=== PATIENT | male | born 1985 | race Caucasian/White ===

== ENCOUNTER 2019-09-19 00:41 | Outpatient (CLI) | payer MEDICARE, SELFPAY ==
[2019-09-19 17:53] LABS: SARS-CoV-2 RNA PCR Negative
== END 2019-09-19 00:42 | disposition home or self-care (01) ==
LOC: ANHCOVIDDT 00:41
PROVIDERS: PCP Emergency Medicine; Visit Provider Surgery
DX: Z20.828 Contact with and (suspected) exposure to other viral communicable diseases (principal); Z01.812 Encounter for preprocedural laboratory examination
CPT/HCPCS: 87635; C9803; U0003

== ENCOUNTER 2019-09-22 02:31 | Day surgery (SDC) | payer MEDICARE, SELFPAY ==
[2019-09-10 14:09] VITALS: BMI 26.9
[2019-09-22] MEDS: LACTATED RINGERS 1,000 ML 30 ML IV CONT (11:25)
[2019-09-22 12:25] VITALS: BP 112/62; PULSE 62; TEMP 36.3; O2SAT 98
--- NOTE | 2019-09-22 12:46 | WPDANESEPPF ---
Anes - Initial Pre Proc Eval Procedure: Operation Date: 09/22/19 13:30 Proposed Procedures p Excision Mass Right Thigh, Excision Mass Left Thigh, Excision Two Masses Right Forearm, Excision Two Masses Right Lower Quadrant Abdominal Wall - Josiah Chaney DO Date/Time: 09/22/19 12:46 Surgeon: Josiah Chaney DO Pre Op Diagnosis: Thigh mass, Forearm mass, Right lower quad Abd Mas Patient Data Age: 34 Gender: M Height: 1.83 m Weight: 90 kg Last Vital Signs Temp 36.3 C L 09/22/19 12:25 Pulse 62 09/22/19 12:25 BP 112/62 09/22/19 12:25 Pulse Ox 98 09/22/19 12:25 Allergies Allergy/AdvReac Type Severity Reaction Status Date / Time No Known Allergies Allergy Unknown Verified 09/22/19 11:41 Home Medications Medication Instructions Recorded Confirmed Type No Home Medications 09/04/19 09/22/19 History Patient hx anesthesia problems: none Family hx anesthesia problems: none [facility] Social History Social History Smoking status: Never smoker Alcohol intake: never Substance use: never Additional occupation/education comments: Disabled Gender identity (if verbalized by the patient): Male Anes - Eval Final PreProcedure Day of Procedure 09/22/19 12:46 Patient weight: overweight Heart: regular rate and rhythm Lungs: clear to auscultation and normal air movement Airway: Mallampati scale class 1 Neurological: alert and oriented Last oral intake: >/= 8 hours ASA classification: II Emergent: no Anesthetic plan: proceed Anesthesia type and monitoring: general GIVS and standard monitoring Informed Consent: The patient's anesthetic plan and its attendant risks and benefits were discussed with the patient/family/POA. Questions were solicited and answers provided to the satisfaction of the patient/family/POA.
--- NOTE | 2019-09-22 12:56 | WPDHPUPDATE1 ---
History and Physical Update Update Date/Time: 09/22/19 12:56 History and Physical has been reviewed, including an updated exam of the patient. There are NO changes in the patient's condition. Risks, benefits, and alternatives have been discussed and questions answered. Patient agrees to proceed with procedure.
[2019-09-22] MEDS: ceFAZolin 2 GM/D5W 50 ML 2 GM/50 ML BAG IVPB (13:16)
[2019-09-22] MEDS: LIDO 1%/EPINEPHRINE 1:100,000 20 ML VIAL 40 ML INFILTRATE (13:30)
--- NOTE | 2019-09-22 14:00 | PM.PROC ---
Procedure Note - Detailed Date of procedure: 09/22/19 Pre-op diagnosis: Thigh mass, Forearm mass, Right lower quad Abd Mas Post-op diagnosis: same Procedure performed: 1. Excision of 2 cm and 1.5 cm right forearm mass 2. Excision of 2 cm and 1.5 cm right lower quadrant abdominal wall mass 3. Excision of 2 cm right anterior thigh mass 4. Excision of 2 cm left anterior thigh mass Description of procedure: Procedure as well as risks, benefits, and alternatives were discussed with the patient. Written consent was obtained and placed in chart prior to procedure. Patient was brought back to surgical suite. He was placed supine on operating table. Time-out was done to confirm patient and procedure. IV sedation was then administered by the Anesthesia Department. The surgical locations were prepped and draped in sterile fashion using chlorhexidine prep. 1% lidocaine with epinephrine was infiltrated over each of the premarked masses. A 1.5 cm incision was made over the right forearm mass using a 15 blade scalpel. The mass was carefully dissected free with blunt dissection and electrocautery. Hemostasis was achieved with electrocautery. The skin edges were then reapproximated using 4 O Monocryl subcuticular sutures. A 2 cm incision was made over the 2nd right forearm mass using a 15 blade scalpel. The mass was carefully dissected free with blunt dissection and electrocautery. Hemostasis was achieved with electrocautery. The skin edges were then reapproximated using 4 O Monocryl subcuticular sutures. A 1.5 cm incision was made over the right lower quadrant abdominal wall mass using a 15 blade scalpel. The mass was carefully dissected free with blunt dissection and electrocautery. Hemostasis was achieved with electrocautery. The skin edges were then reapproximated using 4 O Monocryl subcuticular sutures. A 2 cm incision was made over the 2nd right lower quadrant abdominal wall mass using a 15 blade scalpel. The mass was carefully dissected free with blunt dissection and electrocautery. Hemostasis was achieved with electrocautery. The skin edges were then reapproximated using 4 O Monocryl subcuticular sutures. A 2 cm incision was made over the right anterior thigh mass using a 15 blade scalpel. The mass was carefully dissected free with blunt dissection and electrocautery. Hemostasis was achieved with electrocautery. The skin edges were then reapproximated using 4 O Monocryl subcuticular sutures. A 2 cm incision was made over the left anterior thigh mass using a 15 blade scalpel. The mass was carefully dissected free with blunt dissection and electrocautery. Hemostasis was achieved with electrocautery. The skin edges were then reapproximated using 4 O Monocryl subcuticular sutures. Exofin glue was applied over each incision. The patient was awakened from anesthesia and transferred to recovery. Anesthesia: MAC and local (1% lidocaine with epinephrine) Surgeon: Josiah Chaney DO Wrapper Leaf Inspector: Cris Haq NP Estimated blood loss (mL): 5 Pathology: yes Complications: No immediate complications Condition: stable Disposition: same day Findings: This is a 34-year-old man who presented with multiple painful lumps on his right arm, right lower abdomen, and each thigh. These masses had been present for several months, and have gotten slightly larger. He has never had any of these masses removed and sent for pathology in the past. He is concerned about cancer and would like to know his risks. Discussions were made with the patient about treatment options, and decision was made to proceed with excision of right forearm mass x2, right lower quadrant abdominal wall mass x2, right anterior thigh mass, and left anterior thigh mass. All of the above mentioned masses were excised. The patient was marked in preop and each mass was confirmed with the patient prior to proceeding with the procedure under sedation. He had 2 masses on his right forearm. The more proxi
[2019-09-22 14:03] VITALS: BP 96/49; PULSE 64; RESP 18; O2SAT 94
[2019-09-22 14:30] VITALS: BP 116/62; PULSE 66; RESP 18; O2SAT 100
[2019-09-22 14:45] VITALS: BP 124/75; PULSE 72; RESP 18
== END 2019-09-22 15:00 | disposition home or self-care (01) ==
PROVIDERS: PCP Emergency Medicine; Visit Provider Surgery
PROC: (CPT 27327; principal; 2019-09-22 13:30)
DX: D17.24 Benign lipomatous neoplasm of skin and subcutaneous tissue of left leg (principal); D17.23 Benign lipomatous neoplasm of skin and subcutaneous tissue of right leg; D17.21 Benign lipomatous neoplasm of skin and subcutaneous tissue of right arm; D17.1 Benign lipomatous neoplasm of skin and subcutaneous tissue of trunk
CPT/HCPCS: 27327; 25071; 22903; 88304; J0690; J2250; J2704; J3010; J7120

== ENCOUNTER 2020-03-11 15:05 | Outpatient (CLI) | payer MEDICARE, MEDICAID, SELFPAY ==
--- NOTE | ~2020-03-11 | XR_ITS ---
EXAMINATION: XR lumbar spine 2-3V DATE: 03/11/2020 16:26 INDICATION: Chronic low back pain. TECHNIQUE: 3 views of lumbar spine were obtained. COMPARISON: Lumbar spine radiograph 09/03/2017 FINDINGS: There is 3 degrees levocurvature of lumbar spine. Vertebral body heights are normal. Interv ertebral disc heights are normal. The facet joints are unremarkable. IMPRESSION: 1. No etiology for the patient's symptoms. Reviewed, dictated and finalized at location B. RECEIVER
--- NOTE | ~2020-03-11 | XR_ITS ---
XR thoracic spine 3V DATE: 03/11/2020 16:26 INDICATION: Chronic back pain. No injury. TECHNIQUE: AP, lateral, swimmer views COMPARISON: 09/03/2017 thoracic spine FINDINGS: No fracture or dislocation or bone destruction. The thoracic pedicles are intact. No parasp inal soft tissue thickening. IMPRESSION: Negative Reviewed, dictated and finalized at location A. ODITIES TRADER IMPRESSION: Negative
--- NOTE | ~2020-03-11 | XR_ITS ---
XR cervical spine 4-5V DATE: 03/11/2020 16:26 INDICATION: Chronic neck pain. No injury. TECHNIQUE: AP, open-mouth, lateral, swimmer views COMPARISON: 09/03/2017 cervical spine FINDINGS: There is straightening of the cervical spine. C1 and C2 are normally aligned and the odonto id process is intact. No fracture or dislocation or locked facet or prevertebral soft tissue swelling . Cervical interspaces are well preserved. IMPRESSION: Straightening of the cervical spine Reviewed, dictated and finalized at location A. UNICATIONS PLANNER
[2020-03-11 15:43] LABS: Hematocrit 39.1 % (42.0-52.0); Hemoglobin 14.4 g/dL (14.0-18.0); Mean Corpuscular HGB Conc 36.8 g/dl (32-36); Mean Corpuscular Hemoglobin 32.7 pg (26-34); Mean Corpuscular Volume 88.9 fl (80-100); Mean Platelet Volume 9.8 fl (7.4-10.4); Platelet Count Result 248 k/mm3 (150-375); Red Cell Distribution Width 11.7 % (11.5-14.5); White Blood Count 7.5 K/mm3 (4.5-10.0)
[2020-03-11 15:45] LABS: Add Urine Microscopic? NO; Appearance Urine Clear (Clear); Bilirubin Urine Negative (Negative); Blood Urine Negative (Negative); Color Urine Yellow (Yellow); Glucose Urine UA Negative (Negative); Ketones Urine Negative (Negative); Leukocyte Esterase Ur Negative LEU/UL (NEGATIVE); Nitrate Urine Negative (Negative); Protein Urine Negative (Negative); Specific Grav Ur 1.017 (1.001-1.035); Urobilinogen Urine Negative mg/dL (<2.0)
[2020-03-11 15:55] LABS: Alanine Aminotransferase 15 U/L (4-50); Albumin Level 4.3 g/dL (3.5-5.1); Alkaline Phosphatase 54 U/L (38-126); Anion Gap 6 mmol/L (8-16); Aspartate Amino Transferase 29 U/L (17-59); Bilirubin,Total 0.5 mg/dL (0.2-1.3); Blood Urea Nitrogen 20 mg/dL (9-20); Calcium 9.2 mg/dL (8.4-10.2); Carbon Dioxide 29 mmol/L (22-30); Chloride 104 mmol/L (98-107); Cholesterol 179 mg/dL (0-200); Estimated Glomerular Filt Rate 58; Glucose 92 mg/dL (75-110); HDL Direct 25 mg/dL; Potassium 4.4 mmol/L (3.4-5.0); Sodium 139 mmol/L (137-145); Triglycerides 141 mg/dL (<150)
[2020-03-11 16:06] LABS: LDL Cholesterol Direct 135 mg/dL
[2020-03-11 16:23] LABS: Hemoglobin A1C 4.7 % (<5.7)
[2020-03-11 16:26] LABS: Thyroid Stimulating Hormone 0.637 uIU/mL (0.465-4.680)
[2020-03-11 16:45] LABS: Creatinine Urine 104.9 mg/dL
[2020-03-11 16:46] LABS: Free T4 Free Thyroxine 0.92 ng/mL (0.78-2.19)
[2020-03-11 16:48] LABS: MALB Creatinine Ratio < 5.7 mg/g (0-30); Microalbumin Urine Random < 6.0 mg/L (0-16.7)
== END 2020-03-11 15:06 | disposition home or self-care (01) ==
PROVIDERS: PCP Emergency Medicine; Visit Provider Emergency Medicine
DX: M54.5 Low back pain (principal); R73.9 Hyperglycemia, unspecified; F41.9 Anxiety disorder, unspecified; F32.9 Major depressive disorder, single episode, unspecified; I10 Essential (primary) hypertension; E78.5 Hyperlipidemia, unspecified; R51.9 Headache, unspecified
CPT/HCPCS: 36415; 72050; 72072; 72100; 80053; 80061; 81003; 82043; 83036; 84439; 84443; 85027

== ENCOUNTER 2023-06-25 08:35 | Emergency (ER) | payer MEDICARE, MEDICAID, SELFPAY ==
[2023-06-25 08:46] VITALS: BP 140/90; PULSE 80; RESP 16; TEMP 36.8; O2SAT 100
[2023-06-25 09:03] LABS: Basophils Percent Auto 0.6 % (0.2-1.2); Eosinophils Absolute Auto 0.1 K/mm3 (0-0.3); Eosinophils Percent Auto 1.3 % (0-4.4); Hemoglobin 16.1 g/dL (14.0-18.0); Immature Granulocyte Absolute 0.02 K/mm3 (0.00-0.031); Immature Granulocyte Percent A 0.3 % (0-0.5); Lymphocytes Absolute Auto 1.25 K/mm3 (0.9-3.2); Lymphocytes Percent Auto 18.3 % (18.3-44.2); Mean Corpuscular HGB Conc 35.8 g/dl (32-36); Mean Corpuscular Volume 89.5 fl (80-100); Mean Platelet Volume 9.7 fl (7.4-10.4); Monocytes Absolute Auto 0.3 K/mm3 (0.1-0.6); Neutrophils Absolute Auto 5.1 K/mm3 (1.3-6.7); Neutrophils Percent Auto 74.5 % (45.5-73.1); Platelet Count Result 265 k/mm3 (150-375); Red Blood Count 5.03 M/mm3 (4.6-6.20); Red Cell Distribution Width 11.9 % (11.5-14.5); White Blood Count 6.8 K/mm3 (4.5-10.0)
[2023-06-25 09:08] LABS: Add Urine Microscopic? NO; Color Urine Yellow (Yellow)
[2023-06-25 09:09] LABS: Appearance Urine Clear (Clear); Bilirubin Urine Negative (Negative); Blood Urine Negative (Negative); Glucose Urine UA Negative (Negative); Ketones Urine Trace mg/dL (Negative); Leukocyte Esterase Ur Negative LEU/UL (Negative); Nitrate Urine Negative (Negative); Protein Urine Negative (Negative); Specific Grav Ur 1.015 (1.001-1.035); Urobilinogen Urine 0.2 mg/dL (<2.0)
[2023-06-25 09:12] LABS: Alanine Aminotransferase 44 U/L (6-50); Albumin Level 4.9 g/dL (3.5-5.1); Alkaline Phosphatase 70 U/L (38-126); Anion Gap 6 mmol/L (8-16); Aspartate Amino Transferase 39 U/L (17-59); Bilirubin,Total 0.7 mg/dL (0.2-1.3); Blood Urea Nitrogen 14 mg/dL (9-20); Calcium 9.6 mg/dL (8.4-10.2); Carbon Dioxide 26 mmol/L (22-30); Chloride 105 mmol/L (98-107); Estimated CRCL calculation 113 ml/min; Estimated Glomerular Filt Rate > 60; Glucose 117 mg/dL (65-110); Sodium 137 mmol/L (137-145)
--- NOTE | 2023-06-25 09:12 | ED.PSYCH ---
HPI - Psych General Chief Complaint: Psychiatric Symptoms Stated Complaint: psych eval Time Seen by Provider: 06/25/23 08:40 History of Present Illness HPI Narrative: Pt brought here by EMS for psychiatric evaluation. Pt known paranoid schizophrenic. Pt is hearing voices but they are not telling him to harm himself or anyone else. Pt states he is not suicidal and does not want to harm anyone else. Pt claims he is taking his medicine as prescribed. Pt is willing to be evaluated by specialists. Related Data Home Medications Medication Instructions Recorded Confirmed No Home Medications 09/04/19 10/10/19 Allergies Allergy/AdvReac Type Severity Reaction Status Date / Time No Known Allergies Allergy Unknown Verified 06/25/23 09:09 Review of Systems Review of Systems: All systems reviewed & are unremarkable except as noted in HPI and below PMFSH Past Medical History Medical History (Updated 06/25/23 @ 09:44 by Rhonda Hurley III, DO) Acute anxiety Cervical spine fracture Depression Surgical History Surgical History (System 07/05/22 @ 14:56 by Alan Sow) H/O removal of cyst 7-8 removed Family History Family History (System 07/05/22 @ 14:56 by Alan Sow) Father Cancer Social History Social History (System 07/05/22 @ 14:56 by Alan Sow) Smoking status: Never smoker Alcohol intake: never Substance use: never Substance use type: marijuana Living arrangements: with family Occupation/Education: unemployed Additional occupation/education comments: Disabled Gender identity (if verbalized by the patient): Male Exam Const: General: healthy appearing and no acute distress Nutritional Appearance: well nourished Orientation/consciousness: patient oriented x3 Limitations: behavioral limitations HENMT: Head: normal to inspection Eyes: Conjunctivae: conjunctivae normal Pupils: Equal, round and reactive pupils present EOM: EOMs intact bilaterally Resp: Effort & Inspection: normal respiratory effort Auscultation: clear to auscultation bilaterally Cardio: Rate: regular rate Rhythm: regular rhythm GI: GI Palp: Yes Soft to palpation Auscultation: normal bowel sounds Back/Spine/Pelvis: Back: no CVA tenderness Skin: General skin exam: normal color Rashes: no rashes Wounds: no wounds Neuro: General: patient oriented x3 and no focal motor deficits Speech: normal speech Extrem: General: normal to inspection and no clubbing, cyanosis or edema Psych: Attitude: cooperative Other: pt hearing voices and has some paranoia but is not HI or SI. willing to be evaluated so will check screening labs and have see pt. Course Vital Signs Vital signs: Vital Signs Temperature 98.3 F 06/25/23 08:46 Pulse Rate 80 06/25/23 08:46 Respiratory Rate 16 06/25/23 08:46 Blood Pressure 140/90 06/25/23 08:46 Pulse Oximetry 100 06/25/23 08:46 Oxygen Delivery Room Air 06/25/23 08:46 Temperature 98.0 F 06/25/23 12:00 Pulse Rate 84 06/25/23 12:00 Respiratory Rate 16 06/25/23 12:00 Blood Pressure 142/80 H 06/25/23 12:00 Pulse Oximetry 100 06/25/23 12:00 Oxygen Delivery Room Air 06/25/23 08:46 MDM - Psych MDM Narrative Medical decision making narrative: pt medically cleared for evaluation at 0943. Pt evaluated and deemed safe for discharge. Lab Data 06/25/23 08:51 06/25/23 08:51 Labs: Lab Results 06/25/23 06/25/23 06/25/23 Range/Units 08:51 08:52 08:53 WBC 6.8 (4.5-10.0) K/mm3 RBC 5.03 (4.6-6.20) M/mm3 Hgb 16.1 (14.0-18.0) g/dL Hct 45.0 (42.0-52.0) % MCV 89.5 (80-100) fl MCH 32.0 (26-34) pg MCHC 35.8 (32-36) g/dl RDW 11.9 (11.5-14.5) % Plt Count 265 (150-375) k/mm3 MPV 9.7 (7.4-10.4) fl Immature Gran % (Auto) 0.3 (0-0.5) % Neut % (Auto) 74.5 H (45.5-73.1) % Lymph % (Auto) 18.3 (18.3-44.2) % Pershing % (Auto) 5
[2023-06-25 09:13] LABS: Ethanol < 10 mg/dL (<10)
[2023-06-25 09:20] LABS: Amphetamine Screen Urine Negative (Negative); Barbiturate Screen Urine Negative (Negative); Benzodiazepines Screen Urine Negative (Negative); Cannabinoid Screen Urine Positive (Negative); Cocaine Screen Urine Negative (Negative); Methadone Screen Urine Negative (Negative); Opiate Screen Urine Negative (Negative); Phencyclidine Screen Urine Negative (Negative)
[2023-06-25 09:25] LABS: Acetaminophen < 10 ug/mL (10-30); Salicylate < 1.0 mg/dL (2-20)
[2023-06-25 09:39] LABS: Influenza A QL RT-PCR Negative (Negative); Influenza B QL RT-PCR Negative (Negative); RSV RNA, RT-PCR Negative (Negative); SARS-CoV-2 RNA PCR Negative (Negative)
--- NOTE | 2023-06-25 10:37 | PC.NURSE ---
Crisis here talking to the pt.
[2023-06-25 12:00] VITALS: BP 142/80; PULSE 84; RESP 16; TEMP 36.7; O2SAT 100
== END 2023-06-25 12:03 | disposition home or self-care (01) ==
PROVIDERS: Emergency Provider Emergency Medicine; PCP Family Medicine
DX: F20.0 Paranoid schizophrenia (principal); F41.9 Anxiety disorder, unspecified; Z11.52 Encounter for screening for COVID-19
CPT/HCPCS: 36415; 80053; 80307; 81003; 84443; 85025; 87637; 99284

== ENCOUNTER 2023-10-15 15:50 | Emergency (ER) | payer MEDICARE, MEDICAID, SELFPAY ==
--- NOTE | ~2023-10-15 | XR_ITS ---
XR foot LT min 3V Ordering provider: Kimberly Elizabeth PA-C History: . left foot pain, injury . Comparison: None. FINDINGS: BONES: No acute fracture or dislocation. JOINT SPACES: Normal. No tarsal coalition. SOFT TISSUES: Normal. IMPRESSION: No acute osseous abnormality left foot. Reviewed, dictated and finalized at location A.
--- NOTE | ~2023-10-15 | XR_ITS ---
XR ankle LT min 3V Ordering provider: Kimberly Elizabeth PA-C History: . left ankle pain, injury . Comparison: None. FINDINGS: BONES: No acute fracture or dislocation. JOINT SPACES: The ankle mortise is normal. SOFT TISSUES: Minimal soft tissue swelling over the lateral malleolus. IMPRESSION: No acute osseous abnormality left ankle. Reviewed, dictated and finalized at location A.
[2023-10-15 16:21] VITALS: BP 133/86; PULSE 110; RESP 20; TEMP 36.5; O2SAT 95
--- NOTE | 2023-10-15 16:22 | ED.LOWEXIN ---
HPI - Extremity Injury (Lower) General Chief Complaint: Extremity Injury, Lower Stated Complaint: L ankle injury Time Seen by Provider: 10/15/23 16:22 Focused HPI: This is a 38-year-old male that presents to the emergency department after left ankle injury sustained yesterday. Reports he twisted the ankle. Has had swelling and pain since. Difficulty bearing weight on the leg. Denies decreased range of motion or numbness. GENERAL: Well-appearing, well-nourished, and in no acute distress. HEAD: Normocephalic, atraumatic. CHEST: Clear to auscultation. ?No respiratory distress. HEART: Regular rate and rhythm.? NEURO: ?Alert and oriented x3. Patient screened in triage and initial orders placed.? ?Additional care and disposition to be based upon?diagnostic testing and treatment. Related Data Home Medications Medication Instructions Recorded Confirmed No Home Medications 09/04/19 10/10/19 Allergies Allergy/AdvReac Type Severity Reaction Status Date / Time No Known Allergies Allergy Unknown Verified 10/15/23 16:21 Review of Systems Review of Systems: CONSTITUTIONAL: Denies fever MUSCULOSKELETAL: Reports joint pain, and myalgia. NEUROLOGIC: Denies numbness All systems reviewed & are unremarkable except as noted in HPI and below PMFSH Past Medical History Medical History (Updated 10/15/23 @ 17:33 by Kimberly Elizabeth PA-C) Acute anxiety Cervical spine fracture Depression Surgical History Surgical History (System 07/05/22 @ 14:56 by Alan Sow) H/O removal of cyst 7-8 removed Family History Family History (System 07/05/22 @ 14:56 by Alan Sow) Father Cancer Social History Social History (System 07/05/22 @ 14:56 by Alan Sow) Smoking status: Never smoker Alcohol intake: never Substance use: never Substance use type: marijuana Living arrangements: with family Occupation/Education: unemployed Additional occupation/education comments: Disabled Gender identity (if verbalized by the patient): Male Exam Narrative: GENERAL: Well-appearing, well-nourished, and in no acute distress. HEAD: Normocephalic, atraumatic. EYES: EOMI. EXTREMITIES: Normal range of motion. Edema and bruising to the left lateral malleoli. Normal DP pulse. Normal sensation SKIN: Warm, dry, no rash. NEURO: No focal deficits. Alert and oriented x3. PSYCH: Normal mood and affect Course Course Emergency Course: patient updated on workup and agrees with plan of care Vital Signs Vital signs: Vital Signs Temperature 97.7 F 10/15/23 16:21 Pulse Rate 110 H 10/15/23 16:21 Respiratory Rate 20 10/15/23 16:21 Blood Pressure 133/86 10/15/23 16:21 Pulse Oximetry 95 10/15/23 16:21 Oxygen Delivery Room Air 10/15/23 16:21 Temperature 97.7 F 10/15/23 16:21 Pulse Rate 110 H 10/15/23 16:21 Respiratory Rate 20 10/15/23 16:21 Blood Pressure 133/86 10/15/23 16:21 Pulse Oximetry 95 10/15/23 16:21 Oxygen Delivery Room Air 10/15/23 16:21 Procedures Orthopedic Splinting/Casting Injury #1: Splinting/Casting Date: 10/15/23 Splinting/Casting Time: 17:36 Side: left Lower Extremity Injury Location: ankle Lower Extremity Immobilizer: Burt wrap Splint: prefabricated Pre-Procedure Neuro Vascular Exam: normal Post-Procedure Neuro Vascular Exam: normal Other Orthopedic Equipment: crutches MDM - Extremity Injury (Lower) MDM Narrative Medical decision making narrative: patient presents to the emergency department for left ankle pain after an injury yesterday. He is neurovascularly intact. Left ankle x-ray without acute osseous abnormalities. Patient placed in Burt wrap and given crutches. Instructed on further care of ankle sprain. He is to follow up with primary provider. He was given warnings to return to the ER Differential Diagnosis Differential diagnosis: Likely ankle sprain and strain and
[2023-10-15 17:35] VITALS: BP 110/72; PULSE 67; RESP 16; O2SAT 97
== END 2023-10-15 17:46 | disposition home or self-care (01) ==
PROVIDERS: Emergency Provider Physician Assistant; PCP Family Medicine
DX: S93.402A Sprain of unspecified ligament of left ankle, initial encounter (principal); X50.9XXA Other and unspecified overexertion or strenuous movements or postures, initial encounter
CPT/HCPCS: 73610; 73630; 99283

== ENCOUNTER → 2024-10-27 15:43 | Outpatient (REF) | payer MEDICARE, MEDICAID, SELFPAY ==
--- NOTE | 2024-10-27 15:43 | S_PTH ---
PATIENT: Festus Sexton LOC: ANHGOSHLAB #:[id number] AGE/SX: 39/M ROOM: RE10/27/[address]: Ermias Dai M.D. : 1985 BED: DIS: SPEC #: [id number] RECD: 10/28/24 07:21 STATUS: JESSICA REQ #: [id number] NYA: 10/27/24 15:[address]: Ermias Dai DEPT: [facility] Surgical RECD BY: Yamil Herrera ENTERED: 10/28/24 07:22 SP TYPE: Surgical OTHR DR: Nirmal Martinez, Tissues: A - Mass Procedures: Hematoxylin and Eosin Stain Gross and Microscopic Level 3
== END ==
LOC: ANHGOSHLAB 15:43
PROVIDERS: PCP Family Medicine; Visit Provider Otolaryngology
DX: L92.9 Granulomatous disorder of the skin and subcutaneous tissue, unspecified (principal); D49.0 Neoplasm of unspecified behavior of digestive system
CPT/HCPCS: 88304